=== PATIENT | male | born 1975 | race African-American/Black ===

== ENCOUNTER 2016-10-29 12:56 | Emergency (ER) | payer OTHER ==
[2016-10-29 14:12] VITALS: BP 151/82
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
== END 2016-10-29 15:36 | disposition home or self-care (01) ==
LOC: UCEAST 12:56
DX: M54.2 Cervicalgia (principal); Z88.1 Allergy status to other antibiotic agents; Z87.891 Personal history of nicotine dependence
CPT/HCPCS: 99211; G0463

== ENCOUNTER 2019-04-15 14:59 | Emergency (ER) | payer OTHER ==
[2019-04-15 15:17] VITALS: BP 00/00
--- NOTE | 2019-04-15 15:58 | UC ---
Dental HPI - HPI Summary HPI Summary: 43-year-old male presents with complaints of right upper and lower dental pain. States he has been having problems with his teeth for a long time. Has been to the dentist several times but reports they have declined to pull the teeth because of concern for infection. He is on amoxicillin. Has taken for the past 4 days without improvement in his pain. He has also tried naproxen and ibuprofen without relief. States he last took ibuprofen 200 mg at 13:00. Denies fever, chills, trismus, dysphagia, or difficulty breathing. - History of Current Complaint Chief Complaint: UCDentalProblem Stated Complaint: TOOTH PAIN Time Seen by Provider: 04/15/19 15:44 Hx Obtained From: Patient Pain Intensity: 10 - Allergies/Home Medications Allergies/Adverse Reactions: Allergies Allergy/AdvReac Type Severity Reaction Status Date / Time theophylline Allergy Agitation Verified 04/15/19 15:17 Home Medications: Home Medications Acetaminophen [APAP] 650 mg PO 04/15/19 [History] Ibuprofen 400 mg PO 04/15/19 [History] PMH/Surg Hx/FS Hx/Imm Hx Previously Healthy: Yes - Denies significant PMH Other History Of: Negative For: HIV, Hepatitis B, Hepatitis C, Anticoagulant Therapy - Surgical History Surgical History: None - Family History Known Family History: Positive: Non-Contributory Negative: Diabetes - Social History Occupation: Employed Full-time Lives: With Family Alcohol Use: None Substance Use Type: None Smoking Status (MU): Former Smoker Type: Cigarettes Amount Used/How Often: quit 11/2015 Have You Smoked in the Last Year: Yes When Did the Patient Quit Smoking/Using Tobacco: 6 months ago Household Exposure Type: Cigarettes Review of Systems All Other Systems Reviewed And Are Negative: Yes Constitutional: Negative: Fever, Chills ENT: Positive: Dental Pain Respiratory: Positive: Negative Cardiovascular: Positive: Negative Gastrointestinal: Positive: Negative Genitourinary: Positive: Negative Musculoskeletal: Positive: Negative Neurological: Positive: Negative Is Patient Immunocompromised?: No Physical Exam - Summary Physical Exam Summary: GENERAL APPEARANCE: Well developed, well nourished, alert and cooperative, and appears to be in no acute distress. HEAD: Atraumatic. normocephalic. Mild right sided facial swelling. MOUTH/THROAT: Pharynx normal No tonsilar inflammation, swelling, exudate, or lesions. Uvula midline. Overall dentition in poor condition. Tenderness over the right upper and lower cuspids which have severe decay present. Mild gingival erythema without induration, fluctuance, or drainage. No trismus. NECK: Neck supple, non-tender without lymphadenopathy. CARDIAC: Normal S1 and S2. No S3, S4 or murmurs. Rhythm is regular. There is no peripheral edema, cyanosis or pallor. Extremities are warm and well perfused. Capillary refill is less than 2 seconds. Peripheral pulses intact. LUNGS: Clear to auscultation without rales, rhonchi, wheezing or diminished breath sounds. ABDOMEN: Positive bowel sounds. Soft, nondistended, nontender. No guarding or rebound. No masses or hepatosplenomegally. MUSKULOSKELETAL: ROM intact to all extremities. No joint erythema or tenderness. Normal muscular development. Normal gait. SKIN: Skin normal color, texture and turgor with no lesions or eruptions. Triage Information Reviewed: Yes Vital Signs: Initial Vital Signs Temp 97.1 F 04/15/19 15:13 Pulse 84 04/15/19 15:13 Resp 18 04/15/19 15:13 BP 00/00 04/15/19 15:13 Pulse Ox 100 04/15/19 15:13 Vital Signs Reviewed: Yes Dental Complaint Course/Dx - Course Course Of Treatment: 43-year-old male presents with complaints of right upper and lower dental pain. States he has been having problems with his teeth for a long time. Has been to the dentist several times but reports they have declined to pull the teeth because of concern for infection. He is on amoxicillin. Has taken for the past 4 days without improvement in his pain. He has also tried naproxen and ibuprofen without relief. States he last took ibuprofen 200 mg at 13:00. Denies fever, chills, trismus, dysphagia, or difficulty breathing. Patient had mild right-sided facial swelling with tenderness over the right upper and lower cuspids which have severe decay present, mild gingival erythema without induration, fluctuance, or drainage. No trismus present. Patient was very agitated throughout his stay stating that his dentist has been playing games with him and he will not spend another night in pain. I offered to perform a dental block to provide him some temporary relief now but patient refused stating he wanted a shot of pain pain medication. I discussed with that I could not provide him with a narcotic at this time as he drove himself and that with him recently taking ibuprofen I was reluctant to give ketoralac at this time. I did provide him with an more appropriate dose of the ibuprofen and recommended that we change his antibiotic to Augmentin to provide better coverage for oral pathogens and that I would provide him with a short course of a PO narcotic that he could take as soon as he got home. There was a concern that he would not be able to get to his pharmacy in [place] before it closed so offered to send the prescriptions locally. At time of discharge he told the RN that he had no money to pay for his prescriptions and that the pharmacy he first asked me to send it to did not take his insurance. His then called the clinic stating that the patient did not understand his plan of care so I spoke with her and explained the plan, she felt this was appropriate and requested that prescriptions be sent to [facility] as they would have his insurance information. Prescriptions were sent as requested. Because the pharmacy was closing in 15 minutes, I did send him home with 1 tablet of hydrocodone-acetaminophen 5 mg/325 mg in case he did not make it in time. He was strongly encouraged to keep his appointment with the dentist tomorrow. Anticipatory guidance and warning symptoms were reviewed with the patient. Verbalizes understanding and agrees with POC. - Differential Dx/Diagnosis Differential Diagnosis/Dx: Dental Abscess, Dental Caries, Fractured Tooth, Odontogenic Pain, Peridontic Disease Provider Diagnosis: Pain, dental Discharge - Sign-Out/Discharge Documenting (check all that apply): Patient Departure All imaging exams completed and their final reports reviewed: No Studies - Discharge Plan Condition: Stable Disposition: HOME Prescriptions: Amoxicillin/Clavulanate TAB* [Augmentin TAB 875*] 875 mg PO BID #20 tab Hydrocodone/Acetaminophen [Hydrocodone-Acetamin 5-325 mg] 1 each PO Q6HR PRN #8 tablet MDD 4 PRN Reason: Severe Pain Patient Education Materials: Toothache (ED) Referrals: Hafsa Peña MD [Primary Care Provider] - Additional Instructions: Stop the amoxicillin. Start Augmentin 875 mg 1 tab twice a day for 10 days. Take acetaminophen (Tylenol) or ibuprofen (Advil, Motrin) according to directions as needed for pain. Take hydrocodone-acetaminophen 5 mg/325 mg 1 tablet every 6 hours as needed for severe pain. This medication will cause drowsiness so do not take and drive or operate machinery. Be sure to rinse your mouth out with a warm salt water solution after every time you eat to remove any debris. Keep your appointment with your dentist as scheduled tomorrow. Seek immediate medical attention in the emergency room if you develop fever greater than 100.5 F, you are unable to open of close your mouth, are unable to swallow, have difficulty breathing, or any worsening of symptoms. - Billing Disposition and Condition Condition: STABLE Disposition: Home - Attestation Statements Provider Attestation: I was available for consult. This patient was seen by the [facility]. The patient was not presented to , seen by or examined by id -Mihaela Vazquez MD
[2019-04-15] MEDS ORDERED: Ibuprofen TAB* 400 MG PO ONE (16:06)
[2019-04-15] MEDS ORDERED: HYDROcodone/ACETAMIN 5-325 MG* 1 TAB PO ONE (16:27)
== END 2019-04-15 16:46 | disposition home or self-care (01) ==
LOC: UCEAST 14:59
DX: K08.89 Other specified disorders of teeth and supporting structures (principal); Z87.891 Personal history of nicotine dependence
CPT/HCPCS: 99212; A9270-GY; G0463

== ENCOUNTER 2019-10-04 19:11 | Emergency (ER) | payer SELFPAY ==
[2019-10-04 19:21] VITALS: BP 150/79
[2019-10-04] MEDS ORDERED: Azithromycin TAB* 250 MG PO ONE (19:50)
[2019-10-04] MEDS ORDERED: predniSONE TAB* 20 MG PO ONE (19:50)
--- NOTE | 2019-10-04 19:52 | UC ---
Respiratory Complaint HPI - HPI Summary HPI Summary: 43-year-old male comes in with a chief complaint of upper respiratory tract infection symptoms and asthma symptoms for more than 3 days. The rhinorrhea postnasal drip his Chest congestion. Has been using his albuterol inhaler and also nebulizer with some relief but then he's overall getting worse. Feels like he has a lot of sputum in his chest and is unable to get up. He did take a single dose of prednisone 30 mg once when this all started and it did help some but that's worn off and he feels like is getting worse. - History of Current Complaint Chief Complaint: UCRespiratory Stated Complaint: ASTHMA ISSUE Time Seen by Provider: 10/04/19 19:37 Pain Intensity: 5 - Allergies/Home Medications Allergies/Adverse Reactions: Allergies Allergy/AdvReac Type Severity Reaction Status Date / Time theophylline Allergy Agitation Verified 10/04/19 19:22 Home Medications: Home Medications Lisinopril TAB* [Prinivil TAB*] 10 mg PO DAILY 10/04/19 [History Confirmed 10/04] PMH/Surg Hx/FS Hx/Imm Hx Previously Healthy: Yes Cardiovascular History: Hypertension Respiratory History: Asthma Other History Of: Negative For: HIV, Hepatitis B, Hepatitis C, Anticoagulant Therapy - Surgical History Surgical History: None - Family History Known Family History: Positive: Non-Contributory Negative: Diabetes - Social History Alcohol Use: None Substance Use Type: None Smoking Status (MU): Former Smoker Type: Cigarettes Amount Used/How Often: quit 11/2015 Have You Smoked in the Last Year: Yes When Did the Patient Quit Smoking/Using Tobacco: 6 months ago Household Exposure Type: Cigarettes Review of Systems All Other Systems Reviewed And Are Negative: Yes Constitutional: Positive: Other - SEE HPI Skin: Positive: Negative Eyes: Positive: Negative ENT: Positive: Sore Throat, Nasal Discharge, Sinus Congestion Respiratory: Positive: Shortness Of Breath, Cough, Other - SEE HPI Cardiovascular: Positive: Negative Gastrointestinal: Positive: Negative Motor: Positive: Negative Neurovascular: Positive: Negative Musculoskeletal: Positive: Negative Neurological: Positive: Negative Psychological: Positive: Negative Is Patient Immunocompromised?: No Physical Exam Triage Information Reviewed: Yes Appearance: No Pain Distress, Well-Nourished, Ill-Appearing - MILD Vital Signs: Initial Vital Signs Temp 97.3 F 10/04/19 19:18 Pulse 89 10/04/19 19:18 Resp 18 10/04/19 19:18 BP 150/79 10/04/19 19:18 Pulse Ox 97 10/04/19 19:18 Vital Signs Reviewed: Yes Eye Exam: Normal Eyes: Positive: Conjunctiva Clear ENT: Positive: Pharyngeal erythema, Nasal congestion, Nasal drainage, TMs normal Neck: Positive: Supple Respiratory: Positive: No respiratory distress, Wheezing Cardiovascular: Positive: RRR Musculoskeletal: Positive: Strength Intact, ROM Intact Neurological: Positive: Alert, Muscle Tone Normal Psychological: Positive: Age Appropriate Behavior Skin Exam: Normal Respiratory Course/Dx - Course Course Of Treatment: DISCUSSED VIRAL VERSES BACTERIAL INFECTIONS AND THE ROLE OF ANTIBIOTICS. THE PATIENT PREFERS TO BE ON ANTIBIOTICS AT THIS TIME. - Differential Dx/Diagnosis Provider Diagnosis: Asthma, Bronchitis Discharge ED - Sign-Out/Discharge Documenting (check all that apply): Patient Departure All imaging exams completed and their final reports reviewed: No Studies - Discharge Plan Condition: Stable Disposition: HOME Prescriptions: Azithromycin 250 mg PO DAILY #4 tablet predniSONE TAB* [Deltasone 20 MG TAB*] 40 mg PO DAILY #10 tab Patient Education Materials: Asthma (ED), Acute Bronchitis (ED) Referrals: Hafsa Peña MD [Primary Care Provider] - Additional Instructions: FOLLOW UP WITH YOUR DOCTOR IF NOT COMPLETELY IMPROVED. GET REEVALUATED SOONER IF NOT IMPROVED OR WORSE OR ANY QUESTIONS OR CONCERNS. - Billing Disposition and Condition Condition: STABLE Disposition: Home
== END 2019-10-04 20:13 | disposition home or self-care (01) ==
LOC: UCEAST 19:11
DX: J45.909 Unspecified asthma, uncomplicated (principal); I10 Essential (primary) hypertension; J02.9 Acute pharyngitis, unspecified; R09.89 Other specified symptoms and signs involving the circulatory and respiratory systems; J34.89 Other specified disorders of nose and nasal sinuses; Z79.899 Other long term (current) drug therapy; Z87.891 Personal history of nicotine dependence; Z88.8 Allergy status to other drugs, medicaments and biological substances
CPT/HCPCS: 99212; A9270-GY; G0463; J7512